=== PATIENT | male | born 1985 | race African-American/Black ===

== ENCOUNTER 2016-11-04 07:17 | Emergency (ER) | payer BC ==
[2016-11-04] MEDS ORDERED: DOCUSATE SODIUM 100 MG CAPSULE BTH_EAR ONE (08:08)
--- NOTE | 2016-11-04 08:14 | ER Document Report ---
ED ENT - General Chief Complaint: Ear Pain Stated Complaint: LEFT EAR PAIN Time seen by provider: 08:11 Mode of Arrival: Ambulatory Information source: Patient Notes: 31-year-old male presents to ED for bilateral heels feeling clogged 2 weeks denies any fever has some pain in his right ear. Denies any nasal congestion or coughing. TRAVEL OUTSIDE OF THE [place] IN LAST 30 DAYS: No - HPI Patient complains to provider of: Ear problem Onset: Other Onset/Duration: Gradual - 2 weeks Quality of pain: Achy, Dull Severity: Mild Pain Level: 1 Context: Recent Illness Location of pain: Ears Associated symptoms: Ear drainage Similar symptoms previously: Yes Recently seen / treated by doctor: No - Related Data Allergies/Adverse Reactions: No Known Allergies Allergy (Verified 11/04/16 07:22) Past Medical History - General Information source: Patient - Social History Smoking Status: Current Every Day Smoker Cigarette use (# per day): No - pack per day Smoking Education Provided: Yes - less than 2 minutes Frequency of alcohol use: Social Drug Abuse: None Occupation: [employer] Lives with: Spouse/Significant other Family History: Hypertension Patient has suicidal ideation: No Patient has homicidal ideation: No - Past Medical History Cardiac Medical History: Reports: None Pulmonary Medical History: Reports: None EENT Medical History: Reports: None Neurological Medical History: Reports: None Endocrine Medical History: Reports: None Renal/ Medical History: Reports: None Malignancy Medical History: Reports None GI Medical History: Reports: None Musculoskeltal Medical History: Reports None Skin Medical History: Reports None Psychiatric Medical History: Reports: None Traumatic Medical History: Reports: None Surgical Hx: Negative - Immunizations Hx Diphtheria, Pertussis, Tetanus Vaccination: Yes Review of Systems - Review of Systems Constitutional: No symptoms reported EENT: Ear pain - Achy dull, Ear discharge - Ears feel clogged Cardiovascular: No symptoms reported Respiratory: No symptoms reported Gastrointestinal: No symptoms reported Genitourinary: No symptoms reported Male Genitourinary: No symptoms reported Musculoskeletal: No symptoms reported Skin: No symptoms reported Hematologic/Lymphatic: No symptoms reported Neurological/Psychological: No symptoms reported Physical Exam - Vital signs Vitals: Temp Pulse Resp BP Pulse Ox 98.3 F 72 18 143/71 H 98 11/04/16 07:23 11/04/16 07:23 11/04/16 07:23 11/04/16 07:23 11/04/16 07:23 Interpretation: Normal - General General appearance: Appears well, Alert - HEENT Head: Normocephalic, Atraumatic Eyes: Normal Pupils: PERRL Ears: Normal External canal: Cerumen impaction Tympanic membrane: Normal Sinus: Normal Nasal: Swelling, Clear rhinorrhea Mouth/Lips: Normal Mucous membranes: Normal Pharynx: Post nasal drainage Neck: Normal - Respiratory Respiratory status: No respiratory distress Chest status: Nontender Breath sounds: Normal Chest palpation: Normal - Cardiovascular Rhythm: Regular Heart sounds: Normal auscultation Murmur: No - Abdominal Inspection: Normal Distension: No distension Bowel sounds: Normal Tenderness: Nontender Organomegaly: No organomegaly - Back Back: Normal, Nontender - Extremities General upper extremity: Normal inspection, Nontender, Normal color, Normal ROM , Normal temperature General lower extremity: Normal inspection, Nontender, Normal color, Normal ROM , Normal temperature, Normal weight bearing. No: Alison's sign - Neurological Neuro grossly intact: Yes Cognition: Normal Orientation: AAOx4 Hopewell Coma Scale Eye Opening: Spontaneous Hopewell Coma Scale Verbal: Oriented Rebeca Coma Scale Motor: Obeys Commands Hopewell Coma Scale Total: 15 Speech: Normal Motor strength normal: LUE, RUE, LLE, RLE Sensory: Normal - Psychological Associated symptoms: Normal affect, Normal mood - Skin Skin Temperature: Warm Skin Moisture: Dry Skin Color: Normal Course - Vital Signs Vital signs: Temp Pulse Resp BP Pulse Ox 97.9 F 69 16 133/90 H 100 11/04/16 09:30 11/04/16 09:30 11/04/16 09:30 11/04/16 09:30 11/04/16 09:30 Procedures - Additional Procedures cerumen disimpaction Notes: 11/04/16 16:04 Colace instilled into the ears waited 15 minutes then irrigated with saline and peroxide repeated that for the second ear patient able to hear well before discharge. Discharge - Discharge Clinical Impression: Impacted cerumen of both ears Condition: Stable Disposition: HOME, SELF-CARE Instructions: Family Physicians / Practices Additional Instructions: Cerumen Impaction The physician found a severe buildup of earwax in your ear canal, called a cerumen impaction. A large plug of wax can cause earache, decreased hearing, or itching. It can even lead to infection of the outer ear. An impaction of earwax can be removed by the physician using special instruments, or can be irrigated out using a stream of water (often a little of both is required). Some less severe impactions are removed using ear drops that dissolve wax. In the future, don't get soap in your ear canal. Soap doesn't remove wax - - it simply hardens it in place. Don't use cotton swabs. These just push the wax into large clumps, where it doesn't flow out normally. Dust and smoke also contribute to wax buildup. Earwax softening drops are available without prescription, and can be used periodically. Contact the doctor if you develop decreased hearing, earache, drainage from the ear, or severe headache. Acetaminophen Acetaminophen may be taken for pain relief or fever control. It's much safer than aspirin, offering a wider range of "safe" dosages. It is safe during . Some brand names are Tylenol, Panadol, Datril, Anacin 3, Tempra, and Liquiprin. Acetaminophen can be repeated every four hours. The following are maximum recommended dosages: WEIGHT Dose Drops Elixir Chewable( 80mg) (LBS.) drprs=droppers tsp=teaspoon 6 40 mg .4 ml (1/2) 6-11 80 mg .8 ml (full) 1/2 tsp 1 tab 12-16 120 mg 1 1/2 drprs 3/4 tsp 1 1/2 tabs 17-23 160 mg 2 drprs 1 tsp 2 tabs 24-30 240 mg 3 drprs 1 1/2 tsp 3 tabs 30-35 320 mg 2 tsp 4 tabs 36-41 360 mg 2 1/4 tsp 4 1 /2 tabs 42-47 400 mg 2 1/2 tsp 5 tabs 48-53 480 mg 3 tsp 6 tabs 54-59 520 mg 3 1/4 tsp 6 1 /2 tabs 60-64 560 mg 3 1/2 tsp 7 tabs 65-70 600 mg 3 3/4 tsp 7 1 /2 tabs 71-76 640 mg 4 tsp 8 tabs 77-82 720 mg 4 1/2 tsp 9 tabs 83-88 800 mg 5 tsp 10 tabs >89 pounds or adults 650 mg to 900 mg Acetaminophen can be repeated every four hours. Maximum daily dose not to exceed 4000 mg. These maximum recommended dosages are slightly higher than the dosages written on the product container, but these dosages are very safe and well below the toxic dosage for acetaminophen. Please complete the patient's satisfaction survey if you get one and return. If you do not receive a survey you can go to [facility] website [email or web address] and place your comments about your very good care. Thank you very much. It was a pleasure be in your medical provider today. FOLLOW-UP CARE: If you have been referred to a physician for follow-up care, call the physician s office for an appointment as you were instructed or within the next two days. If you experience worsening or a significant change in your symptoms, notify the physician immediately or return to the Emergency Department at any time for re-evaluation. Forms: Elevated Blood Pressure, Smoking Cessation Education, Return to Work
[2016-11-04 09:33] VITALS: BP 133/90
== END 2016-11-04 09:33 | disposition home or self-care (01) ==
LOC: ER 07:17
PROC: 3E1B78Z Irrigation of Ear using Irrigating Substance, Via Natural or Artificial Opening (ICD-10-PCS; principal; 2016-11-04)
PROC: 3E1B78Z Irrigation of Ear using Irrigating Substance, Via Natural or Artificial Opening (ICD-10-PCS; 2016-11-04)
DX: H61.23 Impacted cerumen, bilateral (principal); H92.03 Otalgia, bilateral; F17.200 Nicotine dependence, unspecified, uncomplicated
CPT/HCPCS: 99282

== ENCOUNTER 2018-08-25 19:34 | Emergency (ER) | payer BC ==
[2018-08-25 20:06] VITALS: BP 155/102
--- NOTE | 2018-08-25 20:30 | ER Document Report ---
HPI - HPI Time Seen by Provider: 08/25/18 20:28 Pain Level: 4 Notes: Patient is a 33-year-old male with no significant past medical history who presents the emergency department complaining of a painful callus to his right anterior hand at the location of the proximal third digit. Patient states that this callus has been there for a long time and he has had intermittent pain throughout, but the pain increased over the last several days. He has not noticed any red streaking or purulent discharge. He is eating and drinking without difficulty. No other concerns or complaints. Pain does not radiate. He is still able to flex and move his finger without discomfort. Denies any headache, fever, neck pain, URI, sore throat, chest pain, palpitations, syncope, cough, shortness of breath, wheeze, dyspnea, abdominal pain, nausea/vomiting/diarrhea, urinary retention, dysuria, hematuria, numbness/tingling, muscle paralysis/weakness, or rash. - ROS Systems Reviewed and Negative: Yes All other systems reviewed and negative - MUSCULOSKELETAL Musculoskeletal: REPORTS: Extremity pain - right hand Past Medical History - Social History Smoking Status: Current Every Day Smoker Chew tobacco use (# tins/day): No Frequency of alcohol use: Occasional Drug Abuse: None Family History: Hypertension Patient has suicidal ideation: No Patient has homicidal ideation: No Renal/ Medical History: Denies: Hx Peritoneal Dialysis - Immunizations Hx Diphtheria, Pertussis, Tetanus Vaccination: Yes Vertical Provider Document - CONSTITUTIONAL Agree With Documented VS: Yes Notes: PHYSICAL EXAMINATION: GENERAL: Well-appearing, well-nourished and in no acute distress. LUNGS: Breath sounds clear to auscultation bilaterally and equal. No wheezes rales or rhonchi. HEART: Regular rate and rhythm without murmurs, rubs, gallops. Musculoskeletal: Rt hand/fingers: FROM to passive/active. Strength 5+/5. N/V intact distal. Extremities: No cyanosis, clubbing, or edema b/l. Peripheral pulses 2+. Capillary refill less than 3 seconds. NEUROLOGICAL: Cranial nerves grossly intact. Normal speech, normal gait. Normal sensory, motor exams PSYCH: Normal mood, normal affect. SKIN: Rt anterior hand (3rd prox digit): there is a keratonized callus noted with palp tenderness. No obvious fluctuance, erythema, or streaks. US was used and noted a possible very small fluid collection (performed by Dr. Mcclure). - INFECTION CONTROL TRAVEL OUTSIDE OF THE [place] IN LAST 30 DAYS: No Course - Re-evaluation Re-evalutation: 08/25/18 20:34 Patient is an afebrile, well-hydrated, 33-year-old male who presents emergency department with an infected callus to his right anterior hand. Vitals are acceptable without significant tachycardia, tachypnea, or hypoxia. PE is otherwise unremarkable for any neurovascular compromise, obvious tendon/leg rupture, obvious fracture/dislocation, septic joint. Needle aspiration was performed with very scant purulent discharge noted wound culture was sent. Wound dressing was placed and wound instructions reviewed. Callus formation care reviewed with the patient. I will be sending him home with a prescription for Bactrim after review with Dr. Mcclure. Advised patient that he should call our hand specialist and schedule an appointment for further evaluation and management. Recheck with your PCM next week as well. Return to the ED with any other worsening/concerning symptoms. Patient is in agreement. - Vital Signs Vital signs: Temp Pulse Resp BP Pulse Ox 99.2 F 82 16 155/102 H 100 08/25/18 19:54 08/25/18 19:54 08/25/18 19:54 08/25/18 20:05 08/25/18 19:54 Procedures - Incision and Drainage Right Hand Time completed: 20:25 - no complications, pt tolerated proc well Type: Simple I&D procedure: Betadine prep applied, Sterile dressing applied Incision Method: Incision made with needle Amount/type of drainage: scant purulent, barely enough to get in the needle Discharge - Discharge Clinical Impression: Right hand pain, Infection of right hand Condition: Stable Disposition: HOME, SELF-CARE Additional Instructions: Keep the skin clean Wash with soap and water Debride your callus with a file/pumice stone Tylenol/ibuprofen if needed Triple antibiotic ointment daily Take medication as directed Monitor for any worsening symptoms Recheck with your PCM in 3-5 days Consider consult with Orthopedics for ongoing/worsening symptoms Return to the ED with any worsening symptoms and/or development of fever, headache, chest pain, palpitations, syncope, shortness of breath, trouble breathing, abdominal pain, n/v/d, abscess, purulent discharge, red streaks, worsening swelling, or other worsening symptoms that are concerning to you. Prescriptions: Sulfamethoxazole/Trimethoprim [Bactrim Ds Tablet] 1 each PO BID #20 tablet Forms: Elevated Blood Pressure, Smoking Cessation Education Referrals: NAYLA FREY DO [ACTIVE STAFF] - Follow up as needed
== END 2018-08-25 20:44 | disposition home or self-care (01) ==
LOC: ER 19:34
DX: L84 Corns and callosities (principal); M79.641 Pain in right hand; F17.200 Nicotine dependence, unspecified, uncomplicated
CPT/HCPCS: 87070; 87075; 87077; 87186; 87205; 99283

== ENCOUNTER → 2018-08-29 | Outpatient (CLI) | payer BC ==
--- NOTE | 2018-08-29 19:13 | RADIOLOGY REPORT (SQ) ---
EXAM DESCRIPTION: MRI RT UPPER EXTREMITY WITHOUT COMPLETED DATE/TIME: 08/29/2018 6:04 pm REASON FOR STUDY: CELLULITIS OF RIGHT HAND L03.119 CELLULITIS OF UNSPECIFIED PART OF LIMB COMPARISON: None. TECHNIQUE: Multiplanar imaging of the right hand to include fat and fluid sensitive sequences. LIMITATIONS: None. FINDINGS: BONE MARROW: No marrow signal alteration. Specifically no marrow replacement or marrow ed caroline. No evidence for osteomyelitis. No cortical break through. SOFT TISSUES: There is diffuse subcutaneous edema along the dorsum of the hand, and subcutaneous khushbu a involving the palmar aspect of the 2nd 3rd and 4th fingers in the MCP joint region. No well-circum scribed soft tissue abscess or focal well-circumscribed fluid collection. No soft tissue gas. Intri nsic hand muscles have normal signal. Carpal tunnel intact. No fluid in the flexor or extensor tend on sheaths. OTHER: No other significant finding. IMPRESSION: NO EVIDENCE FOR OSTEOMYELITIS. DIFFUSE RIGHT HAND CELLULITIS TECHNICAL DOCUMENTATION: JOB ID: [id number] [employer]- All Rights Reserved Reading location - IP/workstation name: [email or web address]
== END ==
LOC: RAD 16:30
PROVIDERS: ATTEND Orthopaedic Surgery
DX: L03.113 Cellulitis of right upper limb (principal)

== ENCOUNTER 2018-12-31 19:39 | Emergency (ER) | payer BC ==
[2018-12-31] MEDS ORDERED: AZITHROMYCIN 250 MG TABLET PO ONE (20:38)
[2018-12-31] MEDS ORDERED: CEFTRIAXONE INJ 250 MG VIAL IM ONE (20:38)
--- NOTE | 2018-12-31 20:43 | ER Document Report ---
HPI - HPI Pain Level: 0 Notes: Patient is a 33-year-old male with no significant past medical history who presents complaining of continued cloudy urethral discharge and some discomfort associated over the past 5 days. He was seen by the health department 4 days ago and was given Rocephin and Zithromax at that time. Patient states that he had a negative gonorrhea and chlamydia test. Patient is here for further testing and treatment. Denies drug allergies. No other concerns or complaints. He is eating and drinking without difficulties. He is having normal bowel movements. Denies any headache, fever, URI, sore throat, chest pain, palpitations, syncope, cough, shortness of breath, wheeze, dyspnea, abdominal pain, nausea/vomiting/diarrhea, hematuria, or rash. - ROS Systems Reviewed and Negative: Yes All other systems reviewed and negative <KACIE GROSS - Last Filed: 12/31/18 20:38> <JONATHAN FERNANDEZ - Last Filed: 12/31/18 21:08> - HPI Time Seen by Provider: 12/31/18 20:37 Past Medical History - Social History Smoking Status: Unknown if Ever Smoked Family History: Hypertension Renal/ Medical History: Denies: Hx Peritoneal Dialysis - Immunizations Hx Diphtheria, Pertussis, Tetanus Vaccination: Yes <KACIE GROSS - Last Filed: 12/31/18 20:38> Vertical Provider Document - CONSTITUTIONAL Agree With Documented VS: Yes Notes: PHYSICAL EXAMINATION: GENERAL: Well-appearing, well-nourished and in no acute distress. LUNGS: Breath sounds clear to auscultation bilaterally and equal. No wheezes rales or rhonchi. HEART: Regular rate and rhythm without murmurs, rubs, gallops. ABDOMEN: Soft, nontender, nondistended abdomen. No guarding, no rebound. Normal bowel sounds present. No CVA tenderness bilaterally. : + cloudy urethral discharge noted. No lesion, rash, ulceration, erythema, swelling, or necrosis noted. Non-tender to palp of penis/scrotum/testicles. Musculoskeletal: FROM to passive/active. Strength 5+/5. NEUROLOGICAL: Normal speech, normal gait. PSYCH: Normal mood, normal affect. SKIN: Warm, Dry, normal turgor, no rashes or lesions noted. - INFECTION CONTROL TRAVEL OUTSIDE OF THE [place] IN LAST 30 DAYS: No <KACIE GROSS - Last Filed: 12/31/18 20:38> Course - Re-evaluation Re-evalutation: 12/31/18 20:41 Patient is an afebrile, well-hydrated, 33-year-old male who presents with presumed non-Gonococcal urethritis. Vitals are acceptable without significant tachycardia, tachypnea, or hypoxia. PE is otherwise unremarkable. Urinalysis pending. Urine culture pending. Chlamydia gonorrhea pending. Patient did receive Rocephin and Zithromax today. I did review Dr. Guzman. We will cover him at home with doxycycline as well as Flagyl to cover for mycoplasma as well as trichomonas as well as pulmonary/gonorrhea not showing up on tests or having possible resistance. Patient is otherwise nontoxic-appearing and is tolerating p.o. without difficulty. Patient to recheck with health department in 3 to 5 days. Consider consult with urology. Return to the ED with any other worsening/concerning symptoms. Patient is in agreement. Jonathan Fernandez PA-C will check on UA prior to discharge otherwise. - Vital Signs Vital signs: Temp Pulse Resp BP Pulse Ox 98.6 F 82 13 142/85 H 99 12/31/18 19:53 12/31/18 19:53 12/31/18 19:53 12/31/18 19:53 12/31/18 19:53 <KACIE GROSS - Last Filed: 12/31/18 20:38> - Re-evaluation Re-evalutation: 12/31/18 21:07 Urinalysis is checked prior to patient's disposition. It is completely normal. The patient is empirically treated for nongonococcal urethritis. - Vital Signs Vital signs: Temp Pulse Resp BP Pulse Ox 98.6 F 82 13 142/85 H 99 12/31/18 19:53 12/31/18 19:53 12/31/18 19:53 12/31/18 19:53 12/31/18 19:53 <JONATHAN FERNANDEZ - Last Filed: 12/31/18 21:08> Discharge <KACIE GROSS - Last Filed: 12/31/18 20:38> <JONATHAN FERNANDEZ - Last Filed: 12/31/18 21:08> - Discharge Clinical Impression: Urethritis Condition: Stable Disposition: HOME, SELF-CARE Additional Instructions: Maintain fluid intake Proper hygienic technique Keep the skin clean Safe sexual practices with condoms everytime Tylenol/ibuprofen as needed Check in with the health department in 3-5 days Your chlamydia/gonorrhea tests are pending and you will be notified if positive results; you may call in 1 day for the results as well F/u with your PCM/Urology in 3-5 days for a recheck Return to the ED with any development of PAZ/fever, trouble with vision, eye redness, worsening pain, urethral discharge, urinary retention, blood in the urine, flank pain, abdominal pain, n/v, Chest Pain, shortness of breath, joint pains, trouble breathing, or any other worsening/concerning symptoms as needed otherwise. Prescriptions: Doxycycline Hyclate 100 mg PO BID #28 capsule Metronidazole [Flagyl] 500 mg PO BID #14 tablet Forms: Elevated Blood Pressure Referrals: [facility] DEPT,[facility] [NO LOCAL MD] - Follow up in 3-5 days
[2018-12-31 20:53] LABS: APPEARANCE,URINE CLEAR; BILIRUBIN,URINE NEGATIVE (NEGATIVE); COLOR,URINE STRAW; GLUCOSE, URINE NEGATIVE (NEGATIVE); KETONES,URINE NEGATIVE (NEGATIVE); LEUKOCYTE ESTERASE,URINE NEGATIVE (NEGATIVE); NITRITE,URINE NEGATIVE (NEGATIVE); PROTEIN,URINE NEGATIVE (NEGATIVE); URINE SPECIFIC GRAVITY 1.008; UROBILINOGEN,URINE NEGATIVE mg/dL (<2.0)
[2018-12-31 21:40] VITALS: BP 150/104
[2018-12-31 22:20] LABS: CHLAM PCR NOT DETECTED (NOT DETECT); GON PCR NOT DETECTED (NOT DETECT)
== END 2018-12-31 21:48 | disposition home or self-care (01) ==
LOC: ER 19:39
DX: N34.2 Other urethritis (principal); R36.0 Urethral discharge without blood
CPT/HCPCS: 99283; 96372; 87086; 81001; 87491; 87591; J0696

== ENCOUNTER 2019-01-03 07:43 | Emergency (ER) | payer BC ==
[2019-01-03 08:00] VITALS: BP 141/79
--- NOTE | 2019-01-03 08:18 | ER Document Report ---
HPI - HPI Patient complains to provider of: Insect bite Time Seen by Provider: 01/03/19 08:08 Onset: Other - Wednesday Onset/Duration: Persistent Quality of pain: Other - Sore Pain Level: 3 Context: Patient presents emergency department with complaints of insect bite to his right posterior thigh that occurred Wednesday night. He reports he cleaned the area with bleach and soaked the area. On the way to the emergency department today he felt like it popped. Denies history of MRSA. Is not sure what bit him. no other symptoms such as fever vomiting diarrhea. Patient is currently prescribed doxycycline for urethritis. Associated Symptoms: None Exacerbated by: Denies Relieved by: Denies Similar symptoms previously: No Recently seen / treated by doctor: No Past Medical History - General Information source: Patient - Social History Smoking Status: Unknown if Ever Smoked Lives with: Family Family History: Hypertension Patient has suicidal ideation: No Patient has homicidal ideation: No - Medical History Medical History: Negative Renal/ Medical History: Denies: Hx Peritoneal Dialysis Surgical Hx: Negative - Immunizations Hx Diphtheria, Pertussis, Tetanus Vaccination: Yes Vertical Provider Document - CONSTITUTIONAL Agree With Documented VS: Yes Exam Limitations: No Limitations General Appearance: WD/WN, No Apparent Distress - INFECTION CONTROL TRAVEL OUTSIDE OF THE [place] IN LAST 30 DAYS: No - HEENT HEENT: Atraumatic, Normocephalic - NECK Neck: Supple - RESPIRATORY Respiratory: No Respiratory Distress - CARDIOVASCULAR Cardiovascular: Regular Rate - MUSCULOSKELETAL/EXTREMETIES Musculoskeletal/Extremeties: MAEW, FROM, Non-Tender - NEURO Level of Consciousness: Awake, Alert, Appropriate Motor/Sensory: No Motor Deficit - DERM Integumentary: Warm, Dry Adult Front & Back Diagram: 1 - Insect bite noted no erythema no swelling no warmth no pustule no drainage no induration. Site looks benign Course - Re-evaluation Re-evalutation: 01/03/19 08:41 Site looks benign. Patient was instructed to keep an eye on the area for signs of infection. He reports he does not live alone somebody can look at the area for him. Dictation of this chart was performed using voice recognition software; therefore, there may be some unintended grammatical errors. - Vital Signs Vital signs: Temp Pulse Resp BP Pulse Ox 98.2 F 79 18 141/79 H 96 01/03/19 08:00 01/03/19 08:00 01/03/19 08:00 01/03/19 08:00 01/03/19 08:00 Discharge - Discharge Clinical Impression: Insect bite Qualifiers: Encounter type: initial encounter Site of insect bite: unspecified site Qualified Code(s): W57.XXXA - Bitten or stung by nonvenomous insect and other nonvenomous arthropods, initial encounter Condition: Stable Disposition: HOME, SELF-CARE Instructions: Insect Bites ([facility]) Additional Instructions: *You have been evaluated for a insect bite *Continue to take your medication as prescribed *Monitor the site for signs of infection such as pain, redness, swelling, warmth *Follow up with a primary care provider within 1 week for recheck *Return to ED for signs of infection, worsening condition, changes, needs Monitor your blood pressure. Your blood pressure was elevated today. This may be because you were anxious, in pain or because you need medication. It is important to follow up with your primary care provider for full evaluation. Forms: Elevated Blood Pressure
== END 2019-01-03 08:25 | disposition home or self-care (01) ==
LOC: ER 07:43
DX: S70.361A Insect bite (nonvenomous), right thigh, initial encounter (principal); W57.XXXA Bitten or stung by nonvenomous insect and other nonvenomous arthropods, initial encounter
CPT/HCPCS: 99281